=== PATIENT | male | born 1940 | race Caucasian/White ===

== ENCOUNTER 2024-08-07 13:51 | Outpatient (CLI) | payer OTHER | END 2024-08-07 13:52 | disposition home or self-care (01) | LOC: CSHRAD 13:51 | PROVIDERS: ATTEND Urology | DX: Z01.818 Encounter for other preprocedural examination (principal); I51.7 Cardiomegaly | CPT/HCPCS: 71046 ==

== ENCOUNTER 2024-08-10 12:26 | Outpatient (CLI) | payer OTHER | END 2024-08-10 12:27 | disposition home or self-care (01) | LOC: CSHSPEC 12:26 | PROVIDERS: ATTEND Urology | DX: R97.20 Elevated prostate specific antigen [PSA] (principal); N42.89 Other specified disorders of prostate | CPT/HCPCS: 72197 ==